=== PATIENT | female | born 1980 | race Asian ===

== ENCOUNTER 2022-02-18 16:21 | Emergency (ER) | payer MEDICAID ==
[~2022-02-18] VITALS: Ht 154.9 cm; Wt 63.6 kg
[2022-02-18] MEDS ORDERED: METF-1211 PO (17:46)
[2022-02-18] MEDS ORDERED: PENI500T2 PO (20:39)
[2022-02-18] MEDS ORDERED: IBUP-2070 PO (20:39)
[2022-02-18 21:06] VITALS: BP 129/77
== END 2022-02-18 21:10 | disposition home or self-care (01) ==
LOC: EMS 17:00
DX: K04.7 Periapical abscess without sinus (principal); E11.9 Type 2 diabetes mellitus without complications
CPT/HCPCS: 99283; Z7502